=== PATIENT | male | born 1960 | race Caucasian/White ===

== ENCOUNTER 2019-01-12 07:57 | Emergency (ER) | payer BC, OTHER ==
--- NOTE | 2019-01-12 08:47 | EDM.PDOC ---
ED HPI GENERAL MEDICAL PROBLEM - General Chief Complaint: General Stated Complaint: fall, head laceration Time Seen by Provider: 01/12/19 08:35 Source of Information: Reports: Patient History Limitations: Reports: No Limitations - History of Present Illness INITIAL COMMENTS - FREE TEXT/NARRATIVE: Sustained laceration of back of head after falling and hitting head on milk crate. No LOC. Denies nausea/dizziness/visual changes/ neck pain. No numbness/ tingling. No other injuries reported. Tetanus is up to date. Right Posterior Head Pain Score (Numeric/FACES): 2 - Related Data Allergies Allergy/AdvReac Type Severity Reaction Status Date / Time No Known Allergies Allergy Verified 01/12/19 08:13 Home Meds: Home Meds Aspirin [Ecotrin] 81 mg PO DAILY 01/12/19 [History] Lisinopril 20 mg PO DAILY 01/12/19 [History] Past Medical History Cardiovascular History: Reports: Hypertension Social & Family History - Tobacco Use Smoking Status *Q: Current Every Day Smoker Years of Tobacco use: 40 Packs/Tins Daily: 0.3 Second Hand Smoke Exposure: Yes ED ROS GENERAL - Review of Systems Review Of Systems: ROS reveals no pertinent complaints other than HPI. ED EXAM, GENERAL - Physical Exam Exam: See Below Exam Limited By: No Limitations General Appearance: Alert, WD/WN, No Apparent Distress Eye Exam: Bilateral Eye: EOMI, PERRL Ears: Normal External Exam, Normal Canal Nose: Normal Inspection Throat/Mouth: Normal Lips, Normal Voice, No Airway Compromise Head: Other (Small hematoma and laceration on back of head, right side) Neck: Normal Inspection, Supple, Non-Tender, Full Range of Motion Respiratory/Chest: No Respiratory Distress Back Exam: Normal Inspection. No: Muscle Spasm, Paraspinal Tenderness, Vertebral Tenderness Extremities: Normal Range of Motion, Normal Capillary Refill Neurological: Alert, Oriented, CN II-XII Intact, Normal Cognition, Normal Gait, No Motor/Sensory Deficits Psychiatric: Normal Affect, Normal Mood Skin Exam: Warm, Dry, Wound/Incision (back of head) ED GENERAL MEDICAL PROCEDURES - Laceration/Wound Repair Right Posterior Head Lac/wound length in cm: 1.5 Appearance: Subcutaneous, Linear, Clean Skin Prep: Chlorhexidine (Hibiciens) Exploration/Debridement/Repair: Wound Explored, In a Bloodless Field, Explored to Base, No Foreign Material Found Closed with: Guerline # of Sutures: 2 Drain Placement: No Sterile Dressing Applied: None Tetanus Status Addressed: Yes Complications: No Course - Vital Signs Last Recorded V/S: Last Vital Signs Temp 36.9 C 01/12/19 07:59 Pulse 85 01/12/19 10:01 Resp 16 01/12/19 08:55 BP 151/110 H 01/12/19 10:01 Pulse Ox 85 L 01/12/19 08:55 - Orders/Labs/Meds Meds: Medications Discontinued Medications Generic Name Dose Route Start Last Admin Trade Name Lester PRN Reason Stop Dose Admin Furosemide 10 mg 01/12/19 09:51 01/12/19 10:00 Lasix PO 01/12/19 09:52 10 mg ONETIME ONE Administration Metoprolol Tartrate 25 mg 01/12/19 08:52 01/12/19 08:55 Lopressor PO 01/12/19 08:53 25 mg ONETIME ONE Administration Metoprolol Tartrate 25 mg 01/12/19 09:52 01/12/19 10:01 Lopressor PO 01/12/19 09:53 25 mg ONETIME ONE Administration Neomycin/Polymyxin/Bacitracin 1 each 01/12/19 09:43 01/12/19 10:02 Triple Antibiotic Oint TOP 01/12/19 09:44 1 each ONETIME ONE Administration - Re-Assessments/Exams Free Text/Narrative Re-Assessment/Exam: 01/12/19 09:43 Laceration repaired. Wound care discussed. Precautions reviewed. BP continued to be elevated. Patient says that he has been on his antihypertensive for only a few months and has had one dose increase since it was started. Has been running high when he checks it at home. Admits to significant improvement in BP a few years ago when he gave up tobacco and sodas and started to exercise. BP elevated again when he gave that up and returned to previous behaviors. Encouragement given to exercise, stop smoking, and make good dietary changes. Metoprolol 25mg also given. He is to be discharged from the ER once his BP is in a better range, with instructions to follow up this week/next available appointment with his PCP to re-evaluated his BP medication. [place] out in one week. Free Text/Narrative Re-Assessment/Exam: 01/12/19 11:01 Diastolic eventually dipped under 100. Patient cleared for discharge. Unable to make patient an appointment at his clinic for follow up today due to it being a holiday. Patient advised again at discharge on importance of BP control as well as health effects of prolonged elevated BPs. He says he will follow up with his primary as advised. Departure - Departure Time of Disposition: 11:03 Disposition: Home, Self-Care 01 Condition: Good Clinical Impression: Hypertension Qualifiers: Hypertension type: unspecified Qualified Code(s): I10 - Essential (primary) hypertension Laceration of head Qualifiers: Encounter type: initial encounter Location of open wound of head: scalp Foreign body presence: without foreign body Qualified Code(s): S01.01XA - Laceration without foreign body of scalp, initial encounter - Discharge Information *PRESCRIPTION DRUG MONITORING PROGRAM REVIEWED*: Not Applicable *COPY OF PRESCRIPTION DRUG MONITORING REPORT IN PATIENT VANESA: Not Applicable Instructions: Furosemide tablets, Metoprolol tablets, Stitches, [place], or Adhesive Wound Closure, [id number], Managing Your Hypertension Referrals: Humberto Cruz MD [Primary Care Provider] - Forms: ED Department Discharge Additional Instructions: Guerline should be removed next Saturday. This can be done for free at the hospital clinic. Call to make this appointment. [phone] See your regular provider concerning your blood pressures. Review your BP readings and have medications adjusted as you are running too high. Make appointment to see your provider this week. Strongly consider trying to make similar changes as you did several years ago-- give up pop/processed foods/sugars/baked goods. Tobacco too if you are able. This should help your blood pressures. Follow up as needed if you have other problems, such as signs of infection.
[2019-01-12] MEDS ORDERED: Metoprolol Tartrate 25 MG Tab PO ONE ×2 (08:52→09:52)
[2019-01-12] MEDS ORDERED: Bacitracin/Neomycin/Polymyxin B Oint 0.9 GM U/D Packet TOP ONE (09:43)
[2019-01-12] MEDS ORDERED: Furosemide 20 MG Tab PO ONE (09:51)
== END 2019-01-12 11:00 | disposition home or self-care (01) ==
LOC: LL.ED 07:57
DX: S01.01XA Laceration without foreign body of scalp, initial encounter (principal); I10 Essential (primary) hypertension; F17.210 Nicotine dependence, cigarettes, uncomplicated; W18.39XA Other fall on same level, initial encounter
CPT/HCPCS: 12001; 99283; A9270-GY